=== PATIENT | male | born 1975 | race Asian ===

== ENCOUNTER 2020-05-23 09:13 | Emergency (ER) | payer BC | END 2020-05-23 10:21 | disposition home or self-care (01) | LOC: CSHERS 09:13 | DX: M79.10 Myalgia, unspecified site (principal); R11.0 Nausea; R50.9 Fever, unspecified; T50.905A Adverse effect of unspecified drugs, medicaments and biological substances, initial encounter; E78.5 Hyperlipidemia, unspecified; Z79.899 Other long term (current) drug therapy | CPT/HCPCS: 99283 ==

== ENCOUNTER 2025-01-22 14:24 | Outpatient (CLI) | payer BC | END 2025-01-22 14:25 | disposition home or self-care (01) | LOC: CSHMRI 14:24 | PROVIDERS: ATTEND Orthopaedic Surgery | DX: M47.22 Other spondylosis with radiculopathy, cervical region (principal); M48.02 Spinal stenosis, cervical region | CPT/HCPCS: 72141 ==